=== PATIENT | female | born 1945 | race Asian ===

== ENCOUNTER 2016-07-20 09:36 | Day surgery (SDC) | payer OTHER ==
[2016-07-20 10:08] VITALS: BMI 29.2
[2016-07-20] MEDS ORDERED: PROPOFOL 20 ML ONE ×2 (10:09)
[2016-07-20] MEDS ORDERED: ATROPINE SULFATE 1 MG/10 ML DISP.SYRIN ONE (10:32)
[2016-07-20 11:23] VITALS: TEMP 97.9
[2016-07-20 12:03] VITALS: BP 124/65; PULSE 62
--- NOTE | 2016-07-21 12:16 | PATH ---
Surgical Pathology Report Patient Name: ANDREA SANTAMARIA [facility]. Rec. #: [id number] /Age/Gender: 1945 (Age: 70) / F Account: [id number] Location: [facility]-ENDOSCOPY Taken: 07/20/2016 Received: 07/20/2016 Reported: 07/21/2016 Physicians: Hung Farias M.D. Specimen(s) Received POLYP TRANSVERSE COLON Clinical History Screening colonoscopy Polyp transverse colon Final Diagnosis COLON, TRANSVERSE, POLYP, POLYPECTOMY: FRAGMENTS OF TUBULAR ADENOMA. Electronically Signed Bebeto Flores M.D. Gross Description Received in formalin, labeled "polyp transverse colon" are 2 razo, irregular portions of soft tissue measuring 0.4 and 0.5 cm in greatest dimension. The specimens are submitted in toto in one cassette. 07/20/201607/20/2016
== END 2016-07-20 12:02 | disposition home or self-care (01) ==
LOC: JASU-ENDO 09:36
PROVIDERS: ATTEND Internal Medicine Gastroenterology
PROC: 0DBL8ZX Excision of Transverse Colon, Via Natural or Artificial Opening Endoscopic, Diagnostic (ICD-10-PCS; principal; 2016-07-20 10:00)
DX: Z12.11 Encounter for screening for malignant neoplasm of colon (principal); D12.3 Benign neoplasm of transverse colon; K57.30 Diverticulosis of large intestine without perforation or abscess without bleeding; K64.8 Other hemorrhoids
CPT/HCPCS: 88305-TC